=== PATIENT | female | born 1970 | race Caucasian/White ===

== ENCOUNTER 2017-08-25 22:14 | Emergency (ER) | payer BC ==
[~2017-08-25] VITALS: Ht 162.6 cm; Wt 86.2 kg
[~2017-08-25 22:14] MED LIST: ADDERALL XR 1515 MG PO; CARAFATE 1 GM TA1 GM PO; LISINOPRIL10 MG PO; PRILOSEC 20 MG20 MG PO
[2017-08-25] MEDS ORDERED: COZAAR 50 MG TA50 MG PO (22:21)
[2017-08-25 22:47] LABS: ABSOLUTE LYMPHOCYTES 1.4 thou/uL (0.8-5.3); ABSOLUTE MONOCYTES 0.4 thou/uL (0.0-1.2); ABSOLUTE NEUTROPHILS 2.2 thou/uL (1.6-8.1); ANION GAP 9 mmol/L (7-16); BASOPHILS 0.8 %; BUN 10 mg/dL (7-18); CALCIUM 9.3 mg/dL (8.5-10.1); CHLORIDE 105 mmol/L (98-107); CO2 28 mmol/L (21-32); CREATININE 0.8 mg/dL (0.6-1.3); EOSINOPHILS 0.2 %; GLUCOSE 87 mg/dL (70-99); HEMATOCRIT 38.7 % (37.0-47.0); HEMOGLOBIN 13.1 gm/dL (12.0-15.0); LYMPHOCYTES 35.7 %; MCH 29.3 pg (26.0-34.0); MCHC 33.9 g/dL (28.0-37.0); MCV 86.5 fL (80.0-100.0); MONOCYTES 8.8 %; MPV 8.7 fl. (7.2-11.1); NUCLEATED RBCS 0 /100WBC; PLATELET COUNT* 201 thou/uL (150-400); POLYS 54.5 %; POTASSIUM 3.6 mmol/L (3.5-5.1); RBC 4.47 mil/uL (4.20-5.00); RDW-CV 13.2 % (10.5-14.5); SODIUM 142 mmol/L (136-145)
[2017-08-25 22:51] LABS: PROTIME 9.7 Seconds (9.20-11.50)
[2017-08-25 22:58] LABS: ALBUMIN 3.7 g/dL (3.4-5.0); ALKALINE PHOSPHATASE 83 U/L (46-116); LIPASE 106 U/L (73-393); NT-PRO BRAIN NAT PEPTIDE 65 pg/mL (<300); SGOT 23 U/L (15-37); SGPT 27 U/L (30-65); TOTAL BILIRUBIN 0.6 mg/dL (<0.1-1.0); TOTAL PROTEIN 7.5 g/dL (6.4-8.2); TROPONIN-I LEVEL <0.06 ng/mL (<0.06)
[2017-08-25 23:43] LABS: URINE BILIRUBIN NEGATIVE (Negative); URINE BLOOD NEGATIVE (Negative); URINE CLARITY CLEAR; URINE COLOR YELLOW; URINE GLUCOSE-RANDOM NEGATIVE (Negative); URINE KETONES NEGATIVE (Negative); URINE LEUKOCYTES-REFLEX NEGATIVE (Negative); URINE NITRITE-REFLEX NEGATIVE (Negative); URINE PROTEIN NEGATIVE (Negative); URINE UROBILINOGEN 0.2 E.U./dl (0.2-1.0)
[2017-08-25 23:52] LABS: AMP/METHAMP Negative (Negative); BARBITURATES Negative (Negative); BENZODIAZEPINES Negative (Negative); COCAINE Negative (Negative); METHADONE Negative (Negative); OPIATES Negative (Negative); PCP Negative (Negative); THC Negative (Negative)
[2017-08-26 01:38] VITALS: BP 133/77
--- NOTE | 2017-08-26 11:44 | EKG ---
[place] [address] ELECTROCARDIOGRAM REPORT Name: SHANNON DOHERTY Room: 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 : 1970 Requested By: Uyen Pantoja Order Number: [id number] MD: Thad Benjamin Measurements Intervals Bryant Rate: 95 P: -21 WA: 120 QRS: 9 QRSD: 99 T: 8 QT: 354 QTc: 445 Interpretive Statements Sinus rhythm Low voltage, precordial leads Compared to ECG 09/09/2016 09:13:27 Low QRS voltage now present Atrial premature complex(es) no longer present Electronically Signed On 08-26-2017 11:44:36 CDT by Thad Benjamin [email or web address] <ELECTRONICALLY SIGNED> By: Thad Benjamin MD, [facility] 08/26/17 1144 2218 2218 Thad Benjamin MD, [facility] /EPI
== END 2017-08-26 01:40 | disposition home or self-care (01) ==
LOC: M.ERS 22:14
PROVIDERS: Emergency Medicine
DX: R07.9 Chest pain, unspecified (principal); I10 Essential (primary) hypertension; Z98.890 Other specified postprocedural states; Z77.22 Contact with and (suspected) exposure to environmental tobacco smoke (acute) (chronic)

== ENCOUNTER 2020-12-30 19:29 | Emergency (ER) | payer OTHER ==
[~2020-12-30] VITALS: Ht 165.1 cm; Wt 90.3 kg
[~2020-12-30 19:29] MED LIST changes: +COZAAR 50 MG TA50 MG PO
[2020-12-30] MEDS ORDERED: CRUTCHES MISCELL (20:10)
[2020-12-30] MEDS ORDERED: HYDROCODON-ACE1 EAC8 PO (20:10)
[2020-12-30 20:27] VITALS: BP 186/86
== END 2020-12-30 20:28 | disposition home or self-care (01) ==
LOC: M.ERS 19:29
DX: S92.354A Nondisplaced fracture of fifth metatarsal bone, right foot, initial encounter for closed fracture (principal); I10 Essential (primary) hypertension; Z79.899 Other long term (current) drug therapy; W10.9XXA Fall (on) (from) unspecified stairs and steps, initial encounter; Y93.89 Activity, other specified; Y92.89 Other specified places as the place of occurrence of the external cause; Y99.8 Other external cause status